=== PATIENT | male | born 1995 | race Caucasian/White ===

== ENCOUNTER 2017-01-28 16:45 | Emergency (ER) | payer OTHER, SELFPAY | END 2017-01-28 18:21 | disposition home or self-care (01) | PROVIDERS: Emergency Provider Emergency Medicine; Family Provider Emergency Medicine; Visit Provider Emergency Medicine | DX: S93.402A Sprain of unspecified ligament of left ankle, initial encounter (principal); X50.1XXA Overexertion from prolonged static or awkward postures, initial encounter; Y93.67 Activity, basketball; Y92.310 Basketball court as the place of occurrence of the external cause | CPT/HCPCS: 29515; 73610; 99284 ==

== ENCOUNTER 2018-11-05 14:33 | Outpatient (RCR) | payer SELFPAY | END 2018-11-05 14:50 | disposition home or self-care (01) | LOC: OT 14:33 | PROVIDERS: Visit Provider Orthopaedic Surgery | DX: M25.531 Pain in right wrist (principal) | CPT/HCPCS: 97763 ==

== ENCOUNTER 2020-06-06 02:38 | Emergency (ER) | payer SELFPAY ==
[2020-06-06 02:39] VITALS: BP 151/69; PULSE 73; RESP 18; TEMP 36.6; O2SAT 100; BMI 29.8
[2020-06-06 02:48] VITALS: BMI 33.7
--- NOTE | 2020-06-06 03:49 | [facility].EDGENADL ---
ED Disposition Clinical Impression: Sunburn of second degree Disposition: Home, Self-Care Condition on Discharge: Good Instructions: DI for Sunburn Additional Instructions: fluids and see pcp for follow up Prescriptions: predniSONE [Prednisone 20mg Tab] 20 mg PO BID #10 tab Transmission Status: Pending to [id number] Ketorolac Tromethamine [Toradol 10mg tablet] 10 mg PO Q6HP PRN #9 tab MDD 40mg/day PRN Reason: Moderate To Severe Pain Transmission Status: Pending to [id number] Referrals: Charles Noel MD [Primary Care Provider] - - Critical Care Critical Care Time: No Attestation: On 06/06/20, the high probability of a clinically significant, sudden or life threatening deterioration of the following system(s) required my full and direct attention, intervention and personal management. The time I documented below is in addition to time spent performing reported procedures but includes the following listed in this critical care notation. Medical Decision Making - Medical Records Medical records reviewed: Yes: I reviewed the patient's medical records. - Leonardo Inquiry Pt receiving controlled substance: No Vital Signs: 06/06/20 02:39 Temperature 97.9 F Temperature Source Oral Pulse Rate [Left Radial] 73 Respiratory Rate 18 Blood Pressure [Left Arm] 151/69 H Blood Pressure Mean [Left Arm] 96 Blood Pressure Source [Left Arm] Automatic Cuff Blood Pressure Position [Left Arm] Sitting 02 Sat by Pulse Oximetry 100 Oxygen Delivery Method Room Air Orders (Tests/Meds): ED MEDICATIONS Discontinued Medications Generic Name Dose Route Start Last Admin Trade Name Freq PRN Reason Stop Dose Admin Diphenhydramine HCl 100 mg 06/06/20 02:48 06/06/20 02:50 Diphenhydramine 50mg Capsule PO 06/06/20 02:49 50 mg ONCE ONE Administration Ketorolac Tromethamine 60 mg 06/06/20 02:48 06/06/20 02:50 Ketorolac 60mg/2ml Vial IM 06/06/20 02:49 60 mg ONCE ONE Administration Methylprednisolone Sodium Succinate 125 mg 06/06/20 02:48 06/06/20 02:50 Methylprednisolone Sod Succ 125mg Vial IV 06/06/20 02:49 125 mg ONCE ONE Administration General Adult HPI - General Chief complaint: PAIN Stated complaint: Severe sunburn; Pain and nausea Time Seen by Provider: 06/06/20 03:00 Mode of Arrival: Ambulatory Source of Information: Patient, Spouse, Medical Record Limitations: No Limitations Description of Symptoms (Recalled from ER Triage Doc. by RN): Pt c/o pain and itching from sunburn obtained 2 days ago. - History of Present Illness HPI narrative: pt with burning and itchy after sunburn - has progressive sx over the last few days Onset (ago): day(s) Location: chest, back Severity: moderate Quality: stabbing Associated symptoms: denies other symptoms Treatments prior to arrival: none - Related Data Previous Rx's Medication Instructions Recorded Ketorolac Tromethamine [Toradol 10 mg PO Q6HP PRN #9 tab MDD 06/06/20 10mg tablet] 40mg/day predniSONE [Prednisone 20mg 20 mg PO BID #10 tab 06/06/20 Tab] Allergies Allergy/AdvReac Type Severity Reaction Status Date / Time No Known Allergies Allergy Verified 11/05/18 13:31 [facility] History - Hepatitis A Screen Drug use history?: No High risk sexual behaviors?: No History of sexually transmitted infection?: No Currently employed?: No Childcare worker?: No Do you have indoor plumbing?: Yes Do you have electricity?: Yes Attestation statement:: This patient has been screened for Hepatitis A risk factors. I have reviewed the patient's past medical history: Yes Medical History: Denies:: Cancer, Diabetes Mellitus Type 1, Diabetes Mellitus Type 2, MRSA Laterality Cases: Right: Other, Bilateral: Tonsillectomy Amputation: No Fractures: No - Social History Smoking Status: Never smoker Alcohol Intake: never Occupational Status: employed ROS Obtained: Yes All systems re
[2020-06-06 04:05] VITALS: BP 134/74; PULSE 79; RESP 14; TEMP 36.2; O2SAT 98
== END 2020-06-06 04:08 | disposition home or self-care (01) ==
PROVIDERS: Emergency Provider Emergency Medicine; PCP Emergency Medicine
DX: L55.1 Sunburn of second degree (principal)
CPT/HCPCS: 96372; 99281